=== PATIENT | male | born 1990 | race Caucasian/White ===

== ENCOUNTER 2022-01-21 15:31 | Inpatient (IN) | payer MEDICAID ==
[~2022-01-21] VITALS: Ht 182.9 cm; Wt 97.5 kg
[2022-01-21 16:14] LABS: BASOPHILS % (AUTO) 0.5 % (0.0-2.0); EOSINOPHILS % (AUTO) 0.4 % (1.0-6.0); HEMATOCRIT 42.6 % (41-53); HEMOGLOBIN 14.4 g/dL (13.5-17.5); LYMPHOCYTES # (AUTO) 1.7 K/uL (1.0-4.8); LYMPHOCYTES % (AUTO) 19.7 % (22.0-44.0); MEAN CORPUSCULAR HEMOGLOBIN 29.1 pg (26.0-34.0); MEAN CORPUSCULAR HGB CONC 33.7 G/dL (31.0-37.0); MEAN CORPUSCULAR VOLUME 86 fL (80-100); MONOCYTES # (AUTO) 0.4 K/uL (0.1-1.0); NEUTROPHILS # (AUTO) 6.5 K/uL (1.8-7.7); NEUTROPHILS % (AUTO) 74.4 % (40.0-70.0); PLATELET COUNT (AUTO) 252 K/uL (150-450); RED BLOOD CELL COUNT(AUTO) 4.94 MIL/uL (4.50-5.90); RED CELL DISTRIBUTION WIDTH 13.7 % (11.5-14.5)
[2022-01-21 16:31] LABS: ANION GAP 6 mmol/L (8-16); CARBON DIOXIDE 31 mmol/L (22-29); CHLORIDE 103 mmol/L (98-107); CREATININE 0.87 mg/dL (0.60-1.30); GLOMERULAR FILTR. RATE CALC > 60 mL/min (>60); GLUCOSE,RANDOM 107 mg/dL (70-110); POTASSIUM 4.3 mmol/L (3.5-5.1); SODIUM SERUM 140 mmol/L (136-145); UREA NITROGEN, BLOOD 11 mg/dL (7-18)
[2022-01-21 16:37] LABS: ALANINE AMINOTRANSFERASE 27 U/L (12-78); ALBUMIN 3.8 g/dL (3.4-5.0); ALKALINE PHOSPHATASE 59 U/L (46-116); ASPARTATE AMINOTRANSFERASE 19 U/L (15-37); BILIRUBIN,TOTAL 0.3 mg/dL (0.1-1.0); TOTAL PROTEIN, SERUM 8.1 g/dL (6.4-8.2)
[2022-01-21 16:44] LABS: COVID AG,FIA SOURCE NASAL SWAB
[2022-01-21 16:53] LABS: AMPHET/METH SCREEN,URINE NEGATIVE (NEGATIVE); BARBITURATE SCREEN, URINE NEGATIVE (NEGATIVE); BENZODIAZEPINES SCREEN,URINE NEGATIVE (NEGATIVE); CANNABINOID SCREEN,URINE NEGATIVE (NEGATIVE); COCAINE SCREEN,URINE NEGATIVE (NEGATIVE); METHADONE SCREEN, URINE NEGATIVE (NEGATIVE); OPIATE SCREEN,URINE NEGATIVE (NEGATIVE)
[2022-01-21 16:54] LABS: PHENCYCLIDINE SCREEN,URINE NEGATIVE (NEGATIVE)
[2022-01-21 22:15] VITALS: BP 131/78
[2022-01-21] MEDS: ZOLPIDEM TARTRATE 10 MG TABLET PO PRN (22:18)
[2022-01-22 00:52] VITALS: BP 122/80
[2022-01-22 07:17] LABS: HEMOGLOBIN A1C 5.7 % (3.8-5.6)
[2022-01-22 07:41] LABS: CHOL/HDL RATIO 3.5 (4.2-7.3); FREE T4 (FREE THYROXINE) 1.28 ng/dL (0.76-1.46); THYROID STIMULATING HORMONE 0.91 uIU/mL (0.36-3.74)
[2022-01-22 08:19] VITALS: BP 106/61
[2022-01-22] MEDS: HALOPERIDOL 5 MG TABLET PO PRN ×2 (08:51→12:52)
[2022-01-22] MEDS: LORazepam 2 MG TABLET PO PRN ×3 (08:52→19:39)
[2022-01-22 16:10] VITALS: BP 126/77
[2022-01-22] MEDS ORDERED: ACETAMINOPHEN 325 MG TABLET PO PRN (16:15)
[2022-01-22] MEDS ORDERED: LOPERAMIDE HCL 2 MG CAPSULE PO PRN (16:15)
[2022-01-22] MEDS ORDERED: GuaiFENesin/D-METHORPHAN [SUGAR-FREE] 200-20MG/10 ML SYRUP UDCUP PO PRN (16:15)
[2022-01-22] MEDS ORDERED: PETROLATUM,WHITE 28 GM JELLY TP PRN (16:15)
[2022-01-22] MEDS ORDERED: DOCUSATE SODIUM 100 MG CAPSULE PO PRN (16:15)
[2022-01-22] MEDS ORDERED: IBUPROFEN 400 MG TABLET PO PRN (16:15)
[2022-01-22] MEDS ORDERED: NICOTINE 14 MG/24 HOUR PATCH TD PRN (16:15)
[2022-01-22] MEDS ORDERED: CloNIDine HCL 0.1 MG TABLET PO PRN (16:15)
[2022-01-22] MEDS ORDERED: MAGNESIUM HYDROXIDE SUSPENSION 30 ML UDCUP PO PRN (16:15)
[2022-01-22] MEDS ORDERED: ALBUTEROL SULFATE HFA 90 MCG/PUFF 8 GM INHALER IH PRN (16:15)
[2022-01-22] MEDS ORDERED: MAG HYDROX/AL HYDROX/SIMETH ES 30 ML SUSPENSION UDCUP PO PRN (16:15)
[2022-01-22] MEDS ORDERED: ONDANSETRON HCL 4 MG TABLET PO PRN (16:15)
[2022-01-22] MEDS: RisperiDONE 1 MG TABLET PO SCH (16:28)
[2022-01-23 01:01] VITALS: BP 108/73
[2022-01-23 08:10] VITALS: BP 107/53
[2022-01-23] MEDS: RisperiDONE 1 MG TABLET PO SCH ×2 (08:13→16:16)
[2022-01-23] MEDS: LORazepam 2 MG TABLET PO PRN ×3 (08:13→20:12)
[2022-01-23] MEDS: HALOPERIDOL 5 MG TABLET PO PRN ×3 (08:56→20:13)
[2022-01-23 16:27] VITALS: BP 118/76
[2022-01-23] MEDS: ZOLPIDEM TARTRATE 10 MG TABLET PO PRN (20:13)
[2022-01-24 00:58] VITALS: BP 110/68
[2022-01-24 08:08] VITALS: BP 138/56
[2022-01-24] MEDS: HALOPERIDOL 5 MG TABLET PO PRN (08:12)
[2022-01-24] MEDS: LORazepam 2 MG TABLET PO PRN ×2 (08:12→19:35)
[2022-01-24] MEDS: RisperiDONE 1 MG TABLET PO SCH ×2 (08:12→16:07)
[2022-01-24 16:12] VITALS: BP_SYST 109; BP_SYST 122; BP_DIAS 67; BP_DIAS 74
[2022-01-24] MEDS: ZOLPIDEM TARTRATE 10 MG TABLET PO PRN (20:55)
[2022-01-25 00:34] VITALS: BP 125/78
[2022-01-25 08:15] VITALS: BP 114/72
[2022-01-25] MEDS: RisperiDONE 1 MG TABLET PO SCH ×2 (08:16→16:36)
[2022-01-25] MEDS: LORazepam 2 MG TABLET PO PRN ×2 (10:51→20:08)
[2022-01-25] MEDS: HALOPERIDOL 5 MG TABLET PO PRN (10:51)
[2022-01-25] MEDS ORDERED: PALIPERIDONE PALMITATE 234 MG/1.5 ML SYRINGE IM ONE (15:00)
[2022-01-25 16:07] VITALS: BP 119/77
[2022-01-25] MEDS: ZOLPIDEM TARTRATE 10 MG TABLET PO PRN (21:13)
[2022-01-26 04:45] VITALS: BP 120/67
[2022-01-26] MEDS: LORazepam 2 MG TABLET PO PRN ×4 (05:55→23:55)
[2022-01-26 08:15] VITALS: BP 129/86
[2022-01-26] MEDS: RisperiDONE 1 MG TABLET PO SCH ×2 (08:36→16:01)
[2022-01-26 16:13] VITALS: BP 123/70
[2022-01-26] MEDS: HALOPERIDOL 5 MG TABLET PO PRN (17:20)
[2022-01-26 18:36] LABS: GLUCOMETER DEV NAME(LOC) POC.BV
[2022-01-26] MEDS: ZOLPIDEM TARTRATE 10 MG TABLET PO PRN (20:23)
[2022-01-27 06:18] VITALS: BP 127/76
[2022-01-27 08:30] VITALS: BP 115/68
[2022-01-27] MEDS: RisperiDONE 1 MG TABLET PO SCH (09:39)
[2022-01-27] MEDS ORDERED: PALIPERIDONE PALMITATE 156 MG/ML SYRINGE IM ONE ×2 (10:45→14:00)
[2022-01-27] MEDS ORDERED: RISP1TAB98 PO (10:48)
[2022-01-27] MEDS ORDERED: PALI156D IM (10:48)
[2022-01-29] MEDS ORDERED: PALIPERIDONE PALMITATE 156 MG/ML SYRINGE IM ONE (09:00)
== END 2022-01-27 15:00 | disposition home or self-care (01) | DRG 750 ==
LOC: EMS 15:33 → B2S 20:00
PROVIDERS: ADMIT Psychiatry & Neurology Child & Adolescent Psychiatry; ATTEND Psychiatry & Neurology Child & Adolescent Psychiatry
DX: F20.0 Paranoid schizophrenia (principal); R45.851 Suicidal ideations; F32.A Depression, unspecified; K59.00 Constipation, unspecified; R73.9 Hyperglycemia, unspecified; Z20.822 Contact with and (suspected) exposure to COVID-19
CPT/HCPCS: 80053; 80061; 83036; 84439; 84443; 85025; 99285; G0480